=== PATIENT | female | born 1970 | race Two or more races ===

== ENCOUNTER 2017-07-08 11:29 | Outpatient (CLI) | payer OTHER ==
[~2017-07-08 11:29] MED LIST: AMOX1TAB12 PO; CALCIUM1 TAB; MEDROL4 MG PO; ZITHROMAX200 MG PO; ZYRTEC10 MG PO
== END 2017-07-08 11:30 | disposition home or self-care (01) ==
LOC: LAB 11:29
DX: N39.0 Urinary tract infection, site not specified (principal)

== ENCOUNTER → 2018-05-15 | Emergency (ER) | payer OTHER ==
[~2018-05-15] VITALS: Ht 157.5 cm; Wt 61.2 kg
[~2018-05-15] MED LIST changes: +ANUSOL-HC25 MG RECTAL; +ASPIR 8181 MG; +INTESTINEX680 M1 PO; +TAMOXIFEN CITRA20 MG; +ZANTAC300 MG PO
== END | disposition home or self-care (01) ==
LOC: ER 15:53
DX: K52.9 Noninfective gastroenteritis and colitis, unspecified (principal); E86.0 Dehydration

== ENCOUNTER → 2020-11-22 08:30 | Outpatient (CLI) | payer OTHER | END | disposition home or self-care (01) | LOC: LAB 08:30 | PROVIDERS: ATTEND Specialist | DX: D50.9 Iron deficiency anemia, unspecified (principal); Z13.1 Encounter for screening for diabetes mellitus; E83.51 Hypocalcemia; E03.9 Hypothyroidism, unspecified; N39.0 Urinary tract infection, site not specified ==

== ENCOUNTER 2020-11-22 09:39 | Outpatient (CLI) | payer OTHER | END 2020-11-22 09:53 | disposition home or self-care (01) | LOC: MAMO-SONO 09:39 | PROVIDERS: ATTEND Specialist | DX: N92.0 Excessive and frequent menstruation with regular cycle (principal); Z12.31 Encounter for screening mammogram for malignant neoplasm of breast ==

== ENCOUNTER → 2020-11-28 08:35 | Outpatient (CLI) | payer OTHER | END | disposition home or self-care (01) | LOC: LAB 08:35 | PROVIDERS: ATTEND Surgery Pediatric Surgery | DX: G73.7 Myopathy in diseases classified elsewhere (principal); Z11.59 Encounter for screening for other viral diseases ==

== ENCOUNTER 2024-04-05 16:22 | Emergency (ER) | payer OTHER ==
[~2024-04-05] VITALS: Ht 160 cm; Wt 65.8 kg
[2024-04-05] MEDS ORDERED: KETOROLAC TROMETHAMINE 15 MG VIAL IV STA (20:35)
[2024-04-05] MEDS ORDERED: ORPHENADRINE CITRATE 30 MG/ML AMPUL IM STA (20:36)
[2024-04-05] MEDS ORDERED: METHYLPREDNISOLONE SOD SUCC 40 MG VIAL IV STA (20:36)
[2024-04-05] MEDS ORDERED: CELEBREX200MG PO (22:48)
[2024-04-05] MEDS ORDERED: METAXALONE800 MG PO (22:48)
[2024-04-05] MEDS ORDERED: MEDROLPACK PO (22:48)
== END 2024-04-05 22:51 | disposition home or self-care (01) ==
LOC: ER 16:24
DX: S33.5XXA Sprain of ligaments of lumbar spine, initial encounter (principal); X58.XXXA Exposure to other specified factors, initial encounter; Y93.9 Activity, unspecified; Y92.9 Unspecified place or not applicable; Y99.9 Unspecified external cause status